=== PATIENT | female | born 1995 | race Hispanic/Latino ===

== ENCOUNTER 2017-07-01 21:30 | Emergency (ER) | payer OTHER ==
[2017-07-01 21:47] VITALS: TEMP 98.4; O2SAT 99
--- NOTE | 2017-07-01 22:44 | ED PDOC ---
HPI: Chest Pain Time Seen by Provider: 07/01/17 21:47 Chief Complaint (Nursing): Chest Pain Chief Complaint (Provider): Chest Pain History Per: Patient History/Exam Limitations: no limitations Onset/Duration Of Symptoms: Days (5 days) Current Symptoms Are (Timing): Still Present Additional Complaint(s): 22 y/o female with a past medical history of anxiety who presents to the emergency department with a complaint of a chest pain ongoing for 5 days associated with nausea and shortness of breath. Patient states discomfort started as an intermittent chest tightness that has changed to pain. Reports feeling heart racing at times. States initially symptoms were consistent with history of anxiety and stress however symptoms are now more persistent and severe compared to the past. Denies vomiting, sweating, use of oral contraceptives, or any recent long flights. Past Medical History Reviewed: Historical Data, Nursing Documentation, Vital Signs Vital Signs: Last Vital Signs Temp 98.4 F 07/01/17 21:43 Pulse 78 07/01/17 23:23 Resp 18 07/01/17 23:23 BP 132/78 07/01/17 23:23 Pulse Ox 99 07/01/17 23:53 - Medical History PMH: Anxiety - Surgical History Surgical History: No Surg Hx - Family History Family History: States: No Known Family Hx - Social History Current smoker - smoking cessation education provided: No Alcohol: Occasional Drugs: Denies - Allergies Allergies/Adverse Reactions: Allergies Allergy/AdvReac Type Severity Reaction Status Date / Time No Known Allergies Allergy Verified 07/01/17 21:43 Review of Systems ROS Statement: Except As Marked, All Systems Reviewed And Found Negative (As per HPI otherwise negative) Constitutional: Negative for: Sweats Cardiovascular: Positive for: Chest Pain, Palpitations, Other (Chest tightness) Respiratory: Positive for: Shortness of Breath Gastrointestinal: Positive for: Nausea. Negative for: Vomiting Physical Exam - Reviewed Nursing Documentation Reviewed: Yes Vital Signs Reviewed: Yes - Physical Exam Appears: Positive for: Non-toxic, No Acute Distress Head Exam: Positive for: ATRAUMATIC, NORMAL INSPECTION, NORMOCEPHALIC Skin: Positive for: Normal Color, Warm, Dry Cardiovascular/Chest: Positive for: Regular Rate, Rhythm. Negative for: Murmur Respiratory: Positive for: Normal Breath Sounds. Negative for: Accessory Muscle Use, Respiratory Distress Gastrointestinal/Abdominal: Positive for: Normal Exam, Soft. Negative for: Tenderness Extremity: Positive for: Normal ROM. Negative for: Pedal Edema Neurologic/Psych: Positive for: Alert, Oriented (x3) - Laboratory Results Result Diagrams: 07/01/17 22:50 07/01/17 22:50 - ECG O2 Sat by Pulse Oximetry: 99 (RA) Pulse Ox Interpretation: Normal Medical Decision Making Medical Decision Making: Time: 2226 Initial Impression: 22 y/o female with chest pain and palpitations Initial Plan: --EKG --BMP --Urine Preg --CBC w/ diff --D Dimer (COAG) --Reevaluation Scribe~Attestation: Documented by Zoila Quiroga, acting as a scribe for Tomer Hernandez MD. Provider Scribe~Attestation: All medical record entries made by the Scribe were at my direction and personally dictated by me. I have reviewed the chart and agree that the record accurately reflects my personal performance of the history, physical exam, medical decision making, and the department course for this patient. I have also personally directed, reviewed, and agree with the discharge instructions and disposition. Time: 23:40 Upon provider reevaluation patient is feeling better, has no clinically significant abnormalities, and requires no further treatment in the ED at this time. Patient will be discharged home. Counseling was provided and all questions were answered regarding diagnosis and need for follow up with PMD. There is agreement to discharge plan. Return if symptoms persist or worsen. Clinical Impression: Atypical chest pain Scribe Attestation: Documented by Javier Avendaño acting as a scribe for Tomer Hernandez MD. Scribe Attestation: All medical record entries made by the Scribe were at my direction and personally dictated by me. I have reviewed the chart and agree that the record accurately reflects my personal performance of the history, physical exam, medical decision making, and the department course for this patient. I have also personally directed, reviewed, and agree with the discharge instructions and disposition. Disposition - Clinical Impression Clinical Impression: Atypical chest pain - Disposition Disposition: Routine/Home Disposition Time: 22:30 Condition: STABLE Instructions: Noncardiac Chest Pain (ED) Forms: [email or web address] ([place]rainian)
[2017-07-01 23:03] LABS: BASO # 0.1 K/uL (0.0-0.2); BASO % 1.1 % (0.0-2.0); EOS # 0.3 K/uL (0.0-0.7); EOS % 3.4 % (0.0-4.0); HEMATOCRIT 36.7 % (34.0-47.0); LYMPH # 2.3 K/uL (1.0-4.3); LYMPH % 27.2 % (20.0-40.0); MEAN CELL VOLUME 93.7 fl (81.0-99.0); MEAN CORPUSCULAR HEMOGLOBIN 30.4 pg (27.0-31.0); MEAN CORPUSCULAR HGB CONC 32.5 g/dL (33.0-37.0); MEAN PLATELET VOLUME 9.3 fl (7.2-11.7); NEUT # 4.8 K/uL (1.8-7.0); NEUT % 56.3 % (50.0-75.0); RED CELL DISTRIBUTION WIDTH 13.6 % (11.5-14.5); WHITE BLOOD COUNT 8.6 K/uL (4.8-10.8)
[2017-07-01 23:12] LABS: BLOOD UREA NITROGEN 12 mg/dl (7-17); CALCIUM 9.1 mg/dL (8.4-10.2); CARBON DIOXIDE 24 mmol/L (22-30); CHLORIDE 106 mmol/L (98-107); GFR AFRICAN-AMERICAN > 60; GLUCOSE,RANDOM 96 mg/dL (65-105); POTASSIUM 3.8 MMOL/L (3.6-5.0); SODIUM 140 mmol/l (132-148)
[2017-07-02 00:40] VITALS: BP 132/78; PULSE 78; RESP 18
--- NOTE | 2017-07-02 15:12 | CARD ---
APPROVED REPORT EKG Measurement Heart [id number] NM [id number] <Conclusion> Sinus tachycardia Possible Left atrial enlargement Borderline ECG
== END 2017-07-01 23:15 | disposition home or self-care (01) ==
LOC: H.ER 21:30
DX: R07.89 Other chest pain (principal); F41.9 Anxiety disorder, unspecified